=== PATIENT | female | born 1970 | race Two or more races ===

== ENCOUNTER 2018-05-16 21:09 | Emergency (ER) | payer OTHER ==
[~2018-05-16] VITALS: Ht 149.9 cm; Wt 81.6 kg
[~2018-05-16 21:09] MED LIST: AMBIEN10 MG PO; AMOX1TAB12 PO; CATAFLAM50 MG PO; COZAAR100 MG PO; KLONOPIN0.5 MG/TAB PO; SEROQUEL200 MG PO; ZOLOFT100 MG PO
[2018-05-16] MEDS ORDERED: NORVASC2.5 M1 (21:34)
[2018-05-16] MEDS ORDERED: HYZAAR 100-251 EACH (21:35)
[2018-05-17] MEDS ORDERED: CEFUROXIME500 MG PO (02:43)
[2018-05-17] MEDS ORDERED: PYRIDIUM DS200 MG PO (02:43)
== END 2018-05-17 03:06 ==
LOC: ER 21:09
DX: I16.0 Hypertensive urgency (principal); I10 Essential (primary) hypertension; N39.0 Urinary tract infection, site not specified; M54.5 Low back pain

== ENCOUNTER → 2019-11-24 08:31 | Outpatient (CLI) | payer OTHER ==
[~2019-11-24 08:31] MED LIST changes: +CEFUROXIME500 MG PO; +HYZAAR 100-251 EACH; +NORVASC2.5 M1; +PYRIDIUM DS200 MG PO
== END | disposition home or self-care (01) ==
LOC: LAB 08:31
PROVIDERS: ATTEND Radiology Diagnostic Radiology
DX: N20.0 Calculus of kidney (principal)

== ENCOUNTER 2019-11-24 09:51 | Outpatient (CLI) | payer OTHER | END 2019-11-24 10:51 | disposition home or self-care (01) | LOC: MRI 09:51 → RAD 09:51 → MRI 10:51 | PROVIDERS: ATTEND Specialist | DX: I10 Essential (primary) hypertension (principal); D25.1 Intramural leiomyoma of uterus ==

== ENCOUNTER 2021-11-17 14:40 | Emergency (ER) | payer OTHER ==
[~2021-11-17] VITALS: Ht 152.4 cm; Wt 102.1 kg
[2021-11-17] MEDS ORDERED: TOPROL XL25 M1 (15:12)
[2021-11-17] MEDS ORDERED: HYDROCHLOROTH12.5 MG (15:12)
[2021-11-17] MEDS ORDERED: CYCLOBENZAPRINE10 MG PO (16:35)
[2021-11-17] MEDS ORDERED: NABUMETONE750 MG PO (16:35)
== END 2021-11-17 16:49 | disposition home or self-care (01) ==
LOC: ER 14:40
DX: M54.50 Low back pain, unspecified (principal); Z86.73 Personal history of transient ischemic attack (TIA), and cerebral infarction without residual deficits; I10 Essential (primary) hypertension; Z91.013 Allergy to seafood

== ENCOUNTER 2022-08-21 07:31 | Emergency (ER) | payer OTHER ==
[~2022-08-21] VITALS: Ht 149.9 cm; Wt 81.6 kg
[~2022-08-21 07:31] MED LIST changes: +CYCLOBENZAPRINE10 MG PO; +HYDROCHLOROTH12.5 MG; +NABUMETONE750 MG PO; +TOPROL XL25 M1
[2022-08-21] MEDS ORDERED: BAYER THERAPY325 MG PO (07:59)
== END 2022-08-21 12:29 | disposition home or self-care (01) ==
LOC: ER 07:31
DX: R20.0 Anesthesia of skin (principal); R20.2 Paresthesia of skin; I10 Essential (primary) hypertension; Z91.013 Allergy to seafood